=== PATIENT | male | born 1990 | race Caucasian/White ===

== ENCOUNTER 2016-09-23 10:06 | Emergency (ER) | payer OTHER ==
[2016-09-23 10:11] VITALS: BP 105/65
--- NOTE | 2016-09-23 11:18 | ED Physician Documentation ---
Sore Throat/Dental Pain - HISTORIAN Historian: patient - HPI Stated Complaint: SORE THROAT Chief Complaint: Sore Throat Additional Information: headache yest awoke during noct w/lethargy sore throat-tested pos for strept - ROS CONST: no problems CVS/RESP: none GI/: denies: problems urinating, nausea, vomiting MS/SKIN/LYMPH: muscle aches. denies: rash NEURO/PSYCH: headache - PAST HX Past History: none Immunizations: UTD Allergies/Adverse Reactions: Allergies Allergy/AdvReac Type Severity Reaction Status Date / Time No Known Allergies Allergy Unverified 09/23/16 10:12 Home Medications: Ambulatory Orders Medication Instructions Recorded NK [NK] 09/23/16 - SOCIAL HX Smoking History: non-smoker Alcohol Use: none Drug Use: none - FAMILY HX Family History: No - VITAL SIGNS Vital Signs: Vital Signs Temp Pulse Resp BP Pulse Ox 99.2 F 78 18 105/65 99 09/23/16 10:05 09/23/16 10:46 09/23/16 10:46 09/23/16 10:46 09/23/16 10:46 - REVIEWED ASSESSMENTS Nursing Assessment Reviewed: Yes Vitals Reviewed: Yes ED Results Lab/Radiology - Orders Orders: ED Orders Category Date Time Status Rapid Strep [GRP A STREP SCREEN] Stat Lab 09/23/16 Ordered Sore throat Physical Exam - EXAM General Appearance: moderate distress Head/Neck: head nml inspection, trachea midline, thyroid nml, cervical lymphadenopathy, anterior. No: no lymphadenopathy Eyes: eyes nml inspection Mouth/Throat: pharyngeal erythema, tonsillar exudate. No: pharynx nml Respiratory: no resp. distress, breath sounds nml. No: respiratory distress CVS: reg. rate & rhythm, heart sounds nml Abdomen: soft, non-tender Extremities: non-tender, nml ROM Skin: warm/dry, normal color. No: cyanosis, diaphoresis, jaundice Neuro/Psych: oriented x3, mood/affect nml Discharge Clincal Impression: Streptococcal sore throat Referrals: Primary Doctor,No [Primary Care Provider] - 2 Days Home Medications: Ambulatory Orders NK [NK] 09/23/16 Condition: Good Disposition: 01 HOME, SELF-CARE Decision to Admit: NO Decision Time: 11:18
== END 2016-09-23 10:46 | disposition home or self-care (01) ==
LOC: ED 10:06 → EDSTATUS 10:07 → ED 10:46
DX: J02.0 Streptococcal pharyngitis (principal)
CPT/HCPCS: 87880; 99283